=== PATIENT | male | born 1960 | race Caucasian/White ===

== ENCOUNTER 2016-08-17 07:11 | Emergency (ER) | payer OTHER ==
[~2016-08-17] VITALS: Ht 182.9 cm; Wt 88.5 kg
[~2016-08-17 07:11] MED LIST: MOBIC15 MG PO
--- NOTE | 2016-08-17 07:28 | ED GENERAL ADULT ---
History of Present Illness General Chief Complaint: Trunk Injury Stated Complaint: LT SIDE RIB PAIN/SWELLING (WORK INJURY) Source: patient Exam Limitations: no limitations Vital Signs & Intake/Output Vital Signs & Intake/Output Vital Signs Date Time Temp Pulse Resp B/P Pulse O2 O2 Flow FiO2 Ox Delivery Rate 08/17 0717 98.4 74 20 171/84 96 Room Air Allergies Coded Allergies: NO KNOWN ALLERGIES (01/05/13) Reconcile Medications Clonazepam 1 MG TABLET 1 TAB PO TIDPRN ANXIETY/PANICK (Reported) Escitalopram Oxalate 10 MG TABLET 1 TAB PO DAILY DEPRESSION (Reported) Meloxicam (Mobic) 15 MG TAB 1 TAB PO DAILY PRN PAIN Triage Note: C/O LEFT RIB PAIN X 2 WEEKS, STATES HE FELT A SHARP PAIN AFTER MOVING METATL LOCKERS AT WORK. Triage Nurses Notes Reviewed? yes Onset: Abrupt Duration: week(s): (3), worse persistent since (THIS MORNING) Timing: recent history Injury Environment: work Severity: mild Modifying Factors: Worsens With: other (STRETCHING). Associated Symptoms: MUSCLE PAIN HPI: This is a 55-year-old healthy male who presents to the ER with chief complaint of a visible line along his left rib cage this morning while stretching. He states 3 weeks ago he was moving lockers at work which were aluminum enlarge. He states that they were awkward to move and when he was moving and he felt something rip on his left side. He never had any bruising or significant pain. Yesterday he was stretching and this morning he found a visible line in the mayor while looking. No further trauma. He does not lift weights. No abdominal pain nausea vomiting or diarrhea. No chest pressure. Past History Travel History Traveled to [place] past 21 day No Medical History Any Pertinent Medical History? see below for history Neurological: NONE Psychiatric: "ANTI DEPRESSANT" Surgical History Surgical History: non-contributory Psychosocial History What is your primary language Kazakh Tobacco Use: Current Daily Use Daily Tobacco Use Amount/Type: Cigar or Pipe use daily ETOH Use: occasional use Family History Hx Contributory? No Review of Systems Review of Systems Constitutional: Denies: see HPI, fever. EENTM: Reports: no symptoms. Respiratory: Denies: cough, short of breath. Cardiovascular: Reports: chest pain. GI: Denies: abdominal pain. Genitourinary: Reports: no symptoms. Musculoskeletal: Reports: muscle pain. Skin: Reports: no symptoms. Neurological/Psychological: Reports: no symptoms. Hematologic/Endocrine: Denies: bruising, bleeding, polyuria, polydipsia. Immunologic/Allergic: Reports: no symptoms. All Other Systems: Reviewed and Negative Physical Exam Physical Exam General Appearance: well developed/nourished, alert, awake Head: atraumatic, normal appearance, active bleeding Eyes: Bilateral: normal appearance, PERRL, EOMI. Ears, Nose, Throat: normal pharynx, hearing grossly normal Neck: normal inspection, supple, full range of motion Respiratory: normal breath sounds, no respiratory distress, LEFT CHEST TENDER PALPABLE CORD Cardiovascular: regular rate/rhythm Peripheral Pulses: 2+ radial (R), 2+ radial (L) Gastrointestinal: normal bowel sounds, soft, non-tender Extremities: normal inspection, normal capillary refill, normal range of motion, no edema Neurologic/Psych: awake, alert, oriented x 3 Skin: intact, normal color, warm/dry Core Measures ACS in differential dx? No CVA/TIA Diagnosis: No Severe Sepsis Present: No Septic Shock Present: No Progress Differential Diagnoses I considered the following diagnoses in my evaluation of the patient: [RIB CONTUSION, MUSCLE STRAIN, MUSCLE TEAR] Plan of Care: Current Medications Sig/Saritha Start time Last Medication Dose Stop Time Status Admin Ibuprofen 800 MG ONCE ONE 08/17 814 UNVr (Motrin) 08/17 815 Diagnostic Imaging: Viewed by Me: Radiology Read. Discussed w/RAD: Radiology Read. Radiology Impression: PATIENT: JENNY SOTO PRESENT AGE: 55 PATIENT ACCOUNT NO: [id number] : 56 LOCATION: [facility] ORDERING PHYSICIAN: KEVIN LUNA MD SERVICE DATE: 08/17/16 EXAM TYPE: RAD - XRY -RIBS UNILATERAL-LEFT EXAMINATION: XR RIBS, LEFT CLINICAL INFORMATION: Left- sided rib pain after moving lockers at work COMPARISON: None TECHNIQUE: 2 views of the left ribs were obtained. FINDINGS: Lungs are clear. No consolidation, pneumothorax, or pleural effusion. The cardiomediastinal silhouette and pulmonary vasculature are normal. There are suture anchors in the left humeral head, presumably from prior rotator cuff repair. Ribs are intact. No fractures are identified. IMPRESSION: Clear lungs. No displaced rib fracture seen. DICTATED BY: JENNY BENEDICT MD DATE/TIME DICTATED:08/17/16757 ALLOPATHIC DOCTOR:MATT DATE/TIME TRANSCRIBED:08/17/16757 CONFIDENTIAL, DO NOT COPY WITHOUT APPROPRIATE AUTHORIZATION. <Electronically signed in Other Vendor System> SIGNED BY: JENNY BENEDICT MD 08/17/16 0803 Initial ED EKG: none Departure Departure Time of Disposition: 08 Disposition: HOME OR SELF CARE Condition: Stable Clinical Impression Primary Impression: Rib pain on left side Referrals: LATOYA RAMIREZ,LEXI Paul (PCP/Family) Additional Instructions: Take motrin or tylenol as need for pain. Follow up with occ med as needed. Departure Forms: Customer Survey General Discharge Information Critical Care Note Critical Care Note Critical Care Time: non-applicable
[2016-08-17] MEDS ORDERED: ESCITALOPRAM OX10 MG PO (07:30)
[2016-08-17] MEDS ORDERED: CLONAZEPAM1 M2 PO (07:31)
--- NOTE | 2016-08-17 08:03 | RADIOLOGY REPORT ---
EXAMINATION: XR RIBS, LEFT CLINICAL INFORMATION: Left-sided rib pain after moving lockers at work COMPARISON: None TECHNIQUE: 2 views of the left ribs were obtained. FINDINGS: Lungs are clear. No consolidation, pneumothorax, or pleural effusion. The cardiomediastinal silhouette and pulmonary vasculature are normal. There are suture anchors in the left humeral head, presumably from prior rotator cuff repair. Ribs are intact. No fractures are identified. IMPRESSION: Clear lungs. No displaced rib fracture seen.
[2016-08-17 08:24] VITALS: BP 162/74
== END 2016-08-17 08:24 ==
LOC: ERH 07:11
DX: R07.81 Pleurodynia (principal)
CPT/HCPCS: 71100-LT